=== PATIENT | female | born 1955 | race Asian ===

== ENCOUNTER 2020-10-21 15:55 | Emergency (ER) | payer BC, MEDICAID ==
[~2020-10-21] VITALS: Ht 149.9 cm; Wt 58.2 kg
[~2020-10-21 15:55] MED LIST: ACET1TAB12 PO; ATOR10TA87 PO; ERGO500041 PO; HYDR12.5 PO; LACT1CAP65 PO; LISI10TA27 PO; METF-900 PO
[2020-10-21] MEDS ORDERED: ibuprofen tablet 400 MG TABLET PO ONE (20:30)
[2020-10-21] MEDS ORDERED: ketorolac tromethamine 15mg/ml inj. IM ONE (20:45)
[2020-10-21 20:46] VITALS: BP 145/81
--- NOTE | 2020-10-21 20:58 | NUR ---
patient given dc instuctions and acknowledged understanding. patient dc with son and daughter.
== END 2020-10-21 20:58 | disposition home or self-care (01) ==
LOC: ER 15:56
DX: M65.20 Calcific tendinitis, unspecified site (principal); M79.601 Pain in right arm; E78.00 Pure hypercholesterolemia, unspecified; I10 Essential (primary) hypertension; E11.9 Type 2 diabetes mellitus without complications; Z98.890 Other specified postprocedural states; Z88.8 Allergy status to other drugs, medicaments and biological substances; Z88.6 Allergy status to analgesic agent; Z79.899 Other long term (current) drug therapy
CPT/HCPCS: 73030; 93005; 96372; 99283; J1885